=== PATIENT | male | born 1955 | race Caucasian/White ===

== ENCOUNTER 2017-04-09 22:05 | Emergency (ER) | payer BC, OTHER ==
[2017-04-09 22:05] VITALS: BMI 48.5
[2017-04-09] MEDS ORDERED: DiphenhydrAMINE 50 mg/ml Inj ONE (22:13)
[2017-04-09 22:16] VITALS: TEMP 97.7
[2017-04-09] MEDS ORDERED: Sodium Chloride 0.9% 1,000 ML IV ONE (22:18)
[2017-04-09] MEDS ORDERED: DiphenhydrAMINE 50 mg/ml Inj IVP STA (22:18)
--- NOTE | 2017-04-09 22:30 | C.PDOC ---
History Of Present Illness 62 year old male who presents to the ER with a complaint of itchiness and SOB that began 20 minutes [employer] after taking amoxicillin. Patient states she received the Rx from [facility]; denies fever, chills, nausea, or vomiting. Chief Complaint (Nursing): Chest Pain History Per: Patient History/Exam Limitations: no limitations Onset/Duration Of Symptoms: Mins Current Symptoms Are (Timing): Still Present Associated Symptoms: Dyspnea. denies: Nausea, Diaphoresis Modifying Factors: None Exacerbating Factors: None Alleviating Factors: None Recent travel outside of the [place]: No Past Medical History Reviewed: Historical Data, Nursing Documentation, Vital Signs Vital Signs: Last Vital Signs Temp 97.7 F 04/09/17 22:13 Pulse 90 04/09/17 22:13 Resp 20 04/09/17 22:13 BP 112/71 04/09/17 22:13 Pulse Ox 96 04/09/17 23:26 - Medical History PMH: Anxiety Surgical History: No Surg Hx Family History: States: Unknown Family Hx - Social History Hx Alcohol Use: No Hx Substance Use: No - Immunization History Hx Tetanus Toxoid Vaccination: No Hx Influenza Vaccination: No Hx Pneumococcal Vaccination: No Review Of Systems Constitutional: Negative for: Fever, Chills Cardiovascular: Negative for: Palpitations Respiratory: Positive for: Shortness of Breath Gastrointestinal: Negative for: Nausea, Vomiting, Diarrhea Skin: Positive for: Rash Neurological: Negative for: Weakness, Numbness Physical Exam - Physical Exam Appears: Non-toxic Skin: Warm, Dry, Rash Head: Atraumatic, Normacephalic Oral Mucosa: Moist Throat: Normal, No Erythema, No Other (Swelling) Neck: Normal, Supple Chest: Symmetrical, No Tenderness Cardiovascular: Rhythm Regular, No Murmur Respiratory: Normal Breath Sounds, No Rales, No Rhonchi, No Stridor, No Wheezing Gastrointestinal/Abdominal: Soft, No Tenderness Neurological/Psych: Oriented x3, Normal Speech, Normal Cognition ED Course And Treatment - Laboratory Results Result Diagrams: 04/09/17 22:30 04/09/17 22:30 ECG: Interpreted By Me, Viewed By Me ECG Rhythm: Sinus Rhythm O2 Sat by Pulse Oximetry: 96 (Room air) Pulse Ox Interpretation: Normal - Radiology CXR: Interpreted by Me, Viewed By Me CXR Interpretation: Yes: No Acute Disease, Other (normal chest film ). No: Infiltrates Progress Note: EKG, blood work, and CXR ordered. Benadyl, pepcid, solumedrol, and IV fluids administered. Disposition Counseled Patient/Family Regarding: Diagnosis - Disposition Referrals: [facility] [Outside] Disposition: HOME/ ROUTINE Disposition Time: 00:00 Condition: IMPROVED Prescriptions: DiphenhydrAMINE [Benadryl] 50 mg PO Q6 #20 cap Famotidine [Pepcid] 20 mg PO BID #14 tab Instructions: Allergies (ED) Forms: [facility] (Gibraltarian), Gen Discharge Inst [place] Island[place] Print Language: [place] ISLANDER - POA Present On Arrival: None - Clinical Impression Clinical Impression: Allergic reaction - Scribe Statement The provider has reviewed the documentation as recorded by the Scribrose [place]os All medical record entries made by the Scribe were at my direction and personally dictated by me. I have reviewed the chart and agree that the record accurately reflects my personal performance of the history, physical exam, medical decision making, and the department course for this patient. I have also personally directed, reviewed, and agree with the discharge instructions and disposition.
[2017-04-09 22:32] LABS: BASO # 0.1 K/uL (0.0-0.2); BASO % 0.7 % (0.0-2.0); EOS # 0.1 K/uL (0.0-0.7); EOS % 1.1 % (0.0-4.0); LYMPH # 7.3 K/uL (1.0-4.3); LYMPH % 60.3 % (20.0-40.0); MEAN CELL VOLUME 74.2 fL (80.0-94.0); MEAN CORPUSCULAR HGB CONC 32.4 g/dL (33.0-37.0); MEAN PLATELET VOLUME 8.4 fL (7.2-11.7); MONO # 0.8 K/uL (0.0-0.8); NRBC % 0.1 % (0.0-2.0); WHITE BLOOD COUNT 12.1 K/uL (4.8-10.8)
[2017-04-09 22:52] LABS: CHLORIDE 102 mmol/L (98-107); POTASSIUM 3.8 mmol/L (3.6-5.2); SODIUM 138 mmol/L (132-148)
[2017-04-09 22:55] LABS: ALB/GLOB RATIO 1.3 (1.0-2.1); ALKALINE PHOSPHATASE 95 U/L (38-126); ALT/SGPT 44 U/L (21-72); AST/SGOT 31 U/L (17-59); BILIRUBIN,TOTAL 0.5 mg/dL (0.2-1.3); BLOOD UREA NITROGEN 28 mg/dL (9-20); CARBON DIOXIDE 22 mmol/L (22-30); GFR AFRICAN-AMERICAN > 60; GLUCOSE,RANDOM 125 mg/dL (75-110)
[2017-04-09 22:56] LABS: CALCIUM 8.7 mg/dl (8.6-10.4)
[2017-04-10 00:16] VITALS: BP 120/63; PULSE 67; RESP 17; O2SAT 99
--- NOTE | 2017-04-10 10:05 | RAD ---
HISTORY: chest pain COMPARISON: No prior. TECHNIQUE: Chest PA and lateral FINDINGS: LUNGS: Suspect minor biapical pleural thickening. . Poor inspiration with low lung volumes, minor crowded bronchovascular markings and minor bibasilar atelectasis PLEURA: No significant pleural effusion identified. No pneumothorax apparent. CARDIOVASCULAR: Cardiomegaly. . OSSEOUS STRUCTURES: Mild multilevel degenerative spondylosis of the thoracic spine VISUALIZED UPPER ABDOMEN: Normal. OTHER FINDINGS: None. IMPRESSION: No active disease.
--- NOTE | 2017-04-19 00:42 | CARD ---
APPROVED REPORT EKG Measurement Heart [id number] <Conclusion> Normal sinus rhythm Normal ECG
== END 2017-04-10 00:15 | disposition home or self-care (01) ==
LOC: C.ER 22:05
DX: T78.40XA Allergy, unspecified, initial encounter (principal)
CPT/HCPCS: 71020; 80053; 84484; 85025; 96361; 96374; 96375; 99285; J1200; J2930; J7040

== ENCOUNTER 2017-09-13 06:29 | Day surgery (SDC) | payer OTHER ==
[2017-08-28 09:39] VITALS: BMI 36.3
[2017-09-13] MEDS ORDERED: Lidocaine 1%/Epinephrine 1:100000 30 ml vial IJ ONE (07:42)
[2017-09-13] MEDS ORDERED: Propofol 10 mg/ml Inj (20 ML) ONE (07:44)
[2017-09-13] MEDS ORDERED: Midazolam 2 MG/2 ML VIAL ONE (07:44)
[2017-09-13] MEDS ORDERED: ceFAZolin IV 2 gm in Dextrose 0 GM/0 ML BAG IVPB ONE (07:46)
[2017-09-13] MEDS ORDERED: Bupivacaine HCl 0.25% PF (10 ml) Inj ONE ×3 (07:46→09:19)
[2017-09-13] MEDS ORDERED: Rocuronium 10 mg/ml (5 ml) ONE (07:58)
[2017-09-13] MEDS ORDERED: Vancomycin 1 gm/D5W 200 ml 1 GM/200 ML BAG IVPB ONE (08:23)
[2017-09-13] MEDS ORDERED: Neostigmine Methylsulfate 3mg/3ml Syringe IV ONE (10:17)
--- NOTE | 2017-09-13 11:39 | PCM.SURG1 ---
Surgeon's Initial Post Op Note - Surgeon's Notes Surgeon: Fadumo Conrad MD Supervisor Cell Maintenance: CARSON Alegre Type of Anesthesia: General Endo Pre-Operative Diagnosis: Umbilical hernia. Diastasis of recti, Large Operative Findings: Umbilical hernia 3x3 cm. Diastasis of recti, Large, 15 cm long, 5 cm wide Post-Operative Diagnosis: Umbilical hernia. Diastasis of recti, Large Operation Performed: Robotic Umbilical hernia repair with mesh. Robotic Diastasis of recti repair with mesh Specimen/Specimens Removed: Umbilical hernia sac and content Estimated Blood Loss: EBL {In ML}: 10 Blood Products Given: N/A Drains Used: No Drains Post-Op Condition: Good Date of Surgery/Procedure: 09/13/17 Time of Surgery/Procedure: 11:39
[2017-09-13] MEDS ORDERED: Lactated Ringer's 1,000 ML IV ONE (11:45)
[2017-09-13] MEDS ORDERED: Tobramycin/Dexamethasone OPHT OINT OS ONE (13:25)
[2017-09-13] MEDS ORDERED: Oxycodone/Acetaminophen 5/325 mg Tab PO PRN (13:58)
[2017-09-13 14:15] VITALS: O2SAT 97
[2017-09-13 15:43] VITALS: BP 144/84; PULSE 79; RESP 18; TEMP 98.6
--- NOTE | 2017-09-13 21:51 | OP ---
PROCEDURE DATE: 09/13/2017 PREOPERATIVE DIAGNOSES: 1. Large umbilical hernia. 2. Diastasis of recti, large. POSTOPERATIVE DIAGNOSES: 1. Large umbilical hernia. 2. Diastasis of recti, large. PROCEDURES DONE: 1. Robotic umbilical hernia repair with a mesh. 2. Robotic diastasis of recti repair with a mesh. 3. Bilateral laparoscopic transverse abdominis plane block placement. SURGEON: Toro Conrad MD. WEIGHT TESTER: CARSON Alegre. TYPE OF ANESTHESIA: General endotracheal tube anesthesia. ESTIMATED BLOOD LOSS: Around 10 mL. DRAINS: None. PATHOLOGY: The hernial sac and content was sent for the pathology. COMPLICATIONS: None. INTRAOPERATIVE FINDINGS: Patient had approximately a 3 x 3-cm umbilical hernial defect [id number] long and 5-cm wide large diastasis of recti and the patient also had morbid obesity. DESCRIPTION OF PROCEDURE: On intraoperative steps, this 62-year-old male was diagnosed with umbilical hernia and large diastasis of recti. Patient was consented for the robotic umbilical hernia repair with a mesh with diastasis of recti repair. Patient was brought to the OR, placed supine on the operating table. After induction of the anesthesia, the abdomen was prepped and draped in the usual sterile fashion. A left upper quadrant incision was made. After incising the skin and subcutaneous tissue, using the Visiport technique, the peritoneal cavity was entered. Pneumo was cerated. Another two 8-mm robotic ports were placed in the left flank and left lower quadrant and robot was brought in. Camera arm as well as arm 1 and arm 2 were docked. Umbilical hernial defect as well as diastasis of recti margin was marked. First, the umbilical hernial sac and defect was demarcated and content was reduced back into the peritoneal cavity and the defect was sutured with 0 Prolene V-Loc sutures in two layers and then the diastasis of recti was also approximated. Both rectus muscles were mobilized in the midline and it was sutured with 0 Prolene interrupted sutures and the fascia was plicated and the repair was done in two layers. Now, the large mesh was placed, approximately 23 x 15 cm. After proper implantation of the mesh, the bilateral laparoscopic TAP block was given. The specimen was taken out and sent off the table for the pathology. There was proper hemostasis in each and every part of the procedure. All the robotic instruments were taken out. The ports were taken out under vision after undocking the robot. All the ports were closed in two layers; subcu with 2-0 Vicryl, skin with 4-0 Monocryl. The TAP block was given after robot was undocked. Patient tolerated the procedure well. Count of instrument and gauze was correct. There was no apparent complication. Toro Conrad MD
== END 2017-09-13 15:34 | disposition home or self-care (01) ==
LOC: C.SDS 06:29
PROVIDERS: ATTEND Surgery Surgical Critical Care
DX: K42.9 Umbilical hernia without obstruction or gangrene (principal); M62.08 Separation of muscle (nontraumatic), other site; E66.01 Morbid (severe) obesity due to excess calories; I10 Essential (primary) hypertension
CPT/HCPCS: 49652; 88302; C1781; J1170; J2001; J2250; J2704; J2710; J3010; J3370; J7120

== ENCOUNTER 2017-10-06 13:46 | Emergency (ER) | payer OTHER ==
[2017-10-06 13:47] VITALS: BMI 36.3
[2017-10-06 18:15] LABS: URINE BACTERIA OCC (<OCC); URINE BILIRUBIN NEGATIVE (NEGATIVE); URINE CLARITY Clear (Clear); URINE COLOR Yellow (YELLOW); URINE GLUCOSE (UA) NORMAL (Normal); URINE LEUKOCYTE ESTERASE NEG Leu/uL (Negative); URINE NITRATE NEGATIVE (NEGATIVE); URINE PROTEIN NEGATIVE (NEGATIVE); URINE UROBILINOGEN NORMAL mg/dL (0.2-1.0)
[2017-10-06 18:16] LABS: URINE BLOOD NEGATIVE (NEGATIVE)
[2017-10-06 18:17] LABS: BASO # 0.1 K/uL (0.0-0.2); BASO % 0.7 % (0.0-2.0); EOS # 0.3 K/uL (0.0-0.7); EOS % 3.6 % (0.0-4.0); LYMPH # 2.1 K/uL (1.0-4.3); LYMPH % 28.5 % (20.0-40.0); MEAN CELL VOLUME 74.5 fL (80.0-94.0); MEAN CORPUSCULAR HEMOGLOBIN 23.9 pg (27.0-31.0); MEAN CORPUSCULAR HGB CONC 32.1 g/dL (33.0-37.0); MEAN PLATELET VOLUME 7.9 fL (7.2-11.7); MONO # 0.6 K/uL (0.0-0.8); MONO % 8.1 % (0.0-10.0); NEUT # 4.3 K/uL (1.8-7.0); NEUT % 59.1 % (50.0-75.0); RBC 5.88 Mil/uL (4.40-5.90); RED CELL DISTRIBUTION WIDTH 13.5 % (11.5-14.5); WHITE BLOOD COUNT 7.3 K/uL (4.8-10.8)
[2017-10-06 18:24] LABS: BARBITURATES, UR NEGATIVE (NEGATIVE); BENZODIAZEPINES, UR NEGATIVE (NEGATIVE); OPIATES, UR NEGATIVE (NEGATIVE); PHENCYCLIDINE, UR NEGATIVE (NEGATIVE)
[2017-10-06 18:30] LABS: ALB/GLOB RATIO 1.2 (1.0-2.1); ALBUMIN 4.4 g/dL (3.5-5.0); ALT/SGPT 28 U/L (21-72); AST/SGOT 20 U/L (17-59); BLOOD UREA NITROGEN 12 mg/dL (9-20); CALCIUM 9.4 mg/dl (8.6-10.4); GFR AFRICAN-AMERICAN > 60; GFR NON-AFRICAN AMERICAN > 60
--- NOTE | 2017-10-06 18:55 | C.PDOC ---
History Of Present Illness 62 y/o male, with PMHx of schizophrenia, anxiety, is brought to ED by family for psych evaluation. As per family, pt has been anxious, has pressured speech, and bizarre behavior. Denies any active physical complaints at this time. Time Seen by Provider: 10/06/17 16:40 Chief Complaint (Nursing): Psychiatric Evaluation History Per: Patient History/Exam Limitations: no limitations Onset/Duration Of Symptoms: Days Current Symptoms Are (Timing): Still Present Associated Symptoms: Anxiety Involuntary Hold By: None Recent travel outside of the [place]: No Additional History Per: Patient, Family Past Medical History Reviewed: Historical Data, Nursing Documentation, Vital Signs Vital Signs: Last Vital Signs Temp 97.4 F L 10/06/17 23:50 Pulse 73 10/06/17 23:50 Resp 20 10/06/17 23:50 BP 119/74 10/06/17 23:50 Pulse Ox 98 10/06/17 23:50 - Medical History PMH: Anxiety, HTN Denies: Chronic Kidney Disease Family History: States: Unknown Family Hx - Social History Hx Alcohol Use: No Hx Substance Use: No - Immunization History Hx Tetanus Toxoid Vaccination: No Hx Influenza Vaccination: No Hx Pneumococcal Vaccination: No Review Of Systems Except As Marked, All Systems Reviewed And Found Negative. Constitutional: Negative for: Fever, Chills Cardiovascular: Negative for: Chest Pain, Palpitations Respiratory: Negative for: Cough, Shortness of Breath Gastrointestinal: Negative for: Nausea, Vomiting, Abdominal Pain Neurological: Negative for: Headache, Dizziness Psych: Positive for: Anxiety Physical Exam - Physical Exam Appears: Non-toxic, No Acute Distress, Other (elderly male) Skin: Normal Color, Warm, Dry Head: Atraumatic, Normacephalic Eye(s): bilateral: Normal Inspection Oral Mucosa: Moist Cardiovascular: Rhythm Regular Respiratory: Normal Breath Sounds, No Rales, No Rhonchi, No Wheezing Extremity: Normal ROM, No Deformity Neurological/Psych: Oriented x3, No Normal Speech (pressured speech) ED Course And Treatment - Laboratory Results Result Diagrams: 10/06/17 18:14 10/06/17 18:14 Lab Interpretation: Normal (tox/etoh neg.) ECG: Interpreted By Me ECG Rhythm: Sinus Rhythm ECG Interpretation: Normal Rate From EC O2 Sat by Pulse Oximetry: 98 Pulse Ox Interpretation: Normal - Radiology CXR: Interpreted by Me CXR Interpretation: Yes: No Acute Disease Progress Note: Blood work, UA ordered and reviewed. CXR and EKG wnl. 2230: medically cleared for psych inpatient eval Reevaluation Time: 20:45 Reassessment Condition: Improved - Physician Consult Information Outcome Of Conversation: 1800, 1930, 0 d/w Crisis, pending transfer Medical Decision Making Medical Decision Makin: schizophrenia pending transfer. PT IS MEDICALLY CLEARED FOR TRANSFER TO [facility] Disposition - Disposition Disposition: Trans to Other Acute Care Hosp Disposition Time: 23:30 Condition: GOOD Forms: [employer] (Bengali) - Clinical Impression Clinical Impression: Schizophrenia - Scribe Statement The provider has reviewed the documentation as recorded by the Scribe Alphonse Reese All medical record entries made by the Scribe were at my direction and personally dictated by me. I have reviewed the chart and agree that the record accurately reflects my personal performance of the history, physical exam, medical decision making, and the department course for this patient. I have also personally directed, reviewed, and agree with the discharge instructions and disposition.
[2017-10-06 22:17] VITALS: RESP 20
[2017-10-06 23:51] VITALS: BP 119/74; PULSE 73; TEMP 97.4; O2SAT 98
--- NOTE | 2017-10-07 06:48 | RAD ---
Chest x-ray two views History: Psychiatric admission. Comparison: 08/28/2017 Findings: No focal infiltrate or effusion. Bilateral hilar prominence. Tortuous aorta. Heart size within normal limits. Degenerative changes in the spine with paravertebral osteophytes. Impression: No focal infiltrate or effusion. Bilateral hilar prominence. Tortuous aorta.
== END 2017-10-06 23:55 | disposition short-term general hospital (02) ==
LOC: C.ER 13:46
DX: F20.9 Schizophrenia, unspecified (principal)